=== PATIENT | female | born 1975 | race African-American/Black ===

== ENCOUNTER → 2016-11-12 | Outpatient (CLI) | payer BC, MEDICAID ==
[2016-11-12 15:58] LABS: PROTHROMBIN TIME 13.8 SEC (11.4-15.4)
[2016-11-12 15:59] LABS: PARTIAL THROMBOPLASTIN TIME 30.8 SEC (23.5-35.8)
== END ==
LOC: OD 14:57
PROVIDERS: ATTEND Obstetrics & Gynecology
DX: N93.8 Other specified abnormal uterine and vaginal bleeding (principal)
CPT/HCPCS: 36415; 85610; 85730

== ENCOUNTER 2017-05-29 07:05 | Day surgery (SDC) | payer BC ==
[2017-05-23 10:48] LABS: APPEARANCE,URINE SLIGHTLY-CLOUDY; BILIRUBIN,URINE NEGATIVE (NEGATIVE); GLUCOSE, URINE NEGATIVE (NEGATIVE); KETONES,URINE NEGATIVE (NEGATIVE); LEUKOCYTE ESTERASE,URINE NEGATIVE (NEGATIVE); NITRITE,URINE NEGATIVE (NEGATIVE); PROTEIN,URINE NEGATIVE (NEGATIVE); URINE SPECIFIC GRAVITY 1.024; UROBILINOGEN,URINE NEGATIVE mg/dL (<2.0)
[2017-05-23 11:08] LABS: HEMATOCRIT 35.3 % (36.0-47.0); HEMOGLOBIN 11.5 g/dL (12.0-15.5); HGB HCT DIFFERENCE -0.8; MEAN CORPUSCULAR HGB CONC 32.5 g/dL (32.0-36.0); MEAN CORPUSCULAR VOLUME 83 fl (80-97); RED BLOOD COUNT 4.26 10^6/uL (3.72-5.28); RED CELL DISTRIBUTION WIDTH 13.5 % (11.5-14.0); WHITE BLOOD COUNT 7.2 10^3/uL (4.0-10.5)
[2017-05-23 11:27] LABS: ALANINE AMINOTRANSFERASE 24 U/L (9-52); ALBUMIN 4.5 g/dL (3.5-5.0); ALKALINE PHOSPHATASE 68 U/L (38-126); ANION GAP 11 (5-19); ASPARTATE AMINO TRANSFERASE 20 U/L (14-36); BILIRUBIN,DIRECT 0.4 mg/dL (0.0-0.4); BILIRUBIN,TOTAL 0.4 mg/dL (0.2-1.3); BLOOD UREA NITROGEN 12 mg/dL (7-20); CALCIUM 9.6 mg/dL (8.4-10.2); CARBON DIOXIDE 24 mmol/L (22-30); CHLORIDE 105 mmol/L (98-107); CREATININE RESULT 0.88 mg/dL (0.52-1.25); GLUCOSE 83 mg/dL (75-110); POTASSIUM 3.9 mmol/L (3.6-5.0); SODIUM 140.1 mmol/L (137-145); TOTAL PROTEIN 7.4 g/dL (6.3-8.2)
[~2017-05-29 07:05] MED LIST: LACTATED RINGERS 1000 ML IV PRN
[2017-05-29] MEDS ORDERED: BUPIVACAINE HCL 0.25 % INJ/PF (2.5 MG/1 ML) 30 ML VIAL ONE (07:44)
[2017-05-29] MEDS ORDERED: FENTANYL CITRATE INJ/PF 250 MCG/5 ML AMPULE ONE (08:37)
[2017-05-29] MEDS ORDERED: MIDAZOLAM 2 MG/2 ML INJ ONE (08:38)
[2017-05-29] MEDS ORDERED: EPHEDRINE SULFATE INJ 50 MG/1 ML AMPULE ONE (08:38)
[2017-05-29] MEDS ORDERED: FENTANYL CITRATE INJ/PF 100 MCG/2 ML AMPUL ONE (08:38)
[2017-05-29] MEDS ORDERED: PROPOFOL INJ 200 MG/20 ML VIAL IV ONE (08:39)
[2017-05-29] MEDS ORDERED: ACETAMINOPHEN 100 ML IV ONE (08:39)
[2017-05-29] MEDS ORDERED: DIPHENHYDRAMINE HCL 50 MG/ML VIAL IV PRN (09:33)
[2017-05-29] MEDS ORDERED: PROMETHAZINE HCL INJ 25 MG/1 ML VIAL IV PRN ×2 (09:33→10:55)
[2017-05-29] MEDS ORDERED: FENTANYL CITRATE INJ/PF 100 MCG/2 ML AMPUL IV PRN ×3 (09:33)
[2017-05-29] MEDS ORDERED: MORPHINE SULFATE 10 MG/ML INJ IV PRN (09:33)
[2017-05-29] MEDS ORDERED: OXYCODONE-ACETAMINOPHEN 5-325 MG TABLET PO PRN ×2 (10:54→10:55)
--- NOTE | 2017-05-29 11:13 | OPERATIVE REPORT E ---
Operative Report NAME: KATE ZAMAN : 1975 AGE: 41Y DATE OF SURGERY: 05/29/2017 ROOM: PREOPERATIVE DIAGNOSES: 1. Dysfunctional uterine bleeding. 2. Undesired fertility. POSTOPERATIVE DIAGNOSES: 1. Dysfunctional uterine bleeding. 2. Undesired fertility. 3. Endometrial polyp. SURGERIES: 1. D and C. 2. Hysteroscopy. 3. Novasure. 4. Laparoscopic tubal with Filshie clips. SURGEON: MIGEL GUZMAN M.D. ANESTHESIA: General and 0.25% Marcaine. ESTIMATED BLOOD LOSS: 25 mL. PERTINENT HISTORY AND OPERATIVE FINDINGS: This is a 41-year-old female who had been having trouble with irregular spotting. She had a Norplant in and ultimately wanted to have it removed, but she wanted to do something to be sure she did not get at this state. She is aware of the risks and benefits of this procedure and opted to go ahead with a D and C, Novasure, hysteroscopy, and laparoscopic Filshie clip applications to the tubes. At the time of surgery, the vulva appeared to be normal. The vagina appeared to be normal. The cervix appeared to be normal. The uterus appeared to be normal size and shape. She had had a previous section, so the bladder was slightly advanced. The tubes appeared to be okay. The ovaries were a little bit enlarged. Nothing suspicious. There was no ascites. Liver showed evidence of some fibrosis. The appendix appeared to be normal as did the rest of the bowel. OPERATIVE PROCEDURE: Patient was brought into the OR, placed on the table in a supine position, inducted under general anesthesia. Following this, she was repositioned in the dorsal lithotomy position, prepped and draped in a sterile fashion. The bladder was drained of about 25 mL of normal yellow urine. After the bladder was drained, we did a pelvic under anesthesia. After this, we went ahead and put in a weighted speculum. The cervix was grasped on its anterior lip with a single-toothed tenaculum. It was sounded to 8 cm. Tenaculum and probe was inserted. The other equipment was removed. Attention was turned toward the abdominal wall. A Veress needle was introduced umbilically and carried through the various layers until the abdominal cavity was entered. Upon entering the abdominal cavity, approximately 2.3 L of CO2 were injected. The opening pressure was 4. The closing pressure was 15. Having established a pneumoperitoneum, the Veress needle was removed. A small incision was made infraumbilically. Through this incision, a trocar and sleeve were inserted. The trocar was removed, and through a sleeve, a scope was inserted. There was good visualization of the pelvic structures. A second incision was made suprapubically through the Pfannenstiel incision of her in the midline. Through the incision, a trocar and sleeve were inserted. The trocar was removed and through the sleeve a probe was inserted. The contents of the pelvis and the abdomen were video recorded. Having done this, a Filshie clip applicator was inserted through the suprapubic port. The right tube was picked up in its mid portion and a Filshie clip was applied. The same procedure was carried out on the left. There seemed to be a good application. A few more pictures were taken. This terminated this part of the procedure. The CO2 was allowed to escape. The ports were removed. The fascia was closed with 0 Vicryl after injecting 6 mL of 0.25% Marcaine in the subumbilical incision and 4 mL in the suprapubic incision. The skin edges were brought together and the subumbilical incision with subcuticular 4-0 Prolene. The skin edges in the suprapubic incision were closed with interrupted using 4-0 Prolene. Band aids were applied. Attention was then turned back down towards the pelvis. A weighted speculum was inserted. The tenaculum probe was removed. The cervix was grasped on its anterior lip with a single-toothed tenaculum. It was dilated with uterine dilators to a #8. The cervical length was 4 cm and our cavity length was measured at 8 cm, so we have a cavity length from the internal cervical os to the fundus of 4 cm. Having established this, the area was curetted and a hysteroscope was inserted. The hysteroscope was inserted while running in normal saline. We did see a polyp on the anterior fundal surface pretty much right at the top. Polyp forceps were inserted and the polyp was removed. The excess saline was then removed and the hysteroscope was then removed. The Novasure was opened up. The system was purged. It was then gently inserted through the external cervical os, the internal cervical os, and carried up to the fundus of the uterus. It was then gently opened up. It was manipulated north, south, east, west with a 45-degree rotation in between and then pulled back. This was done 3 times. It gave us a cavity width of 3.7 cm. Having established that, the system was purged and we had a power level of 81. The equipment was enabled. We had a burn time of 1 minute, 35 seconds. Then, the Novasure was closed. It was gently extracted from the uterus and the hysteroscope was then gently reinserted through the cervical os, and while the saline was running, we had a good visualization of the uterine cavity. There was a good burn. This terminated this part of the procedure. The tenaculum was removed from the cervix, which were used for traction during this whole procedure. There were 2 of them. The lower one had a bleeding on its left prong site and we tried to treat this with Monsel's, but unfortunately were unable to stop the bleeding, so we opened up a cautery, and at 35 power, we went ahead and cauterized the area where she was having bleeding from the prong site of the first tenaculum. The area was sponged. There was no evidence of ongoing bleeding. The weighted speculum was removed. The equipment was all removed. Patient was placed back in the supine position and anesthesia was discontinued. Patient tolerated the procedure well, had an estimated blood loss of about 25 mL, left the operating room in satisfactory condition. As stated, photographs were taken of the laparoscopic procedure, once again showing a normal appendix, slightly enlarged sclerotic ovaries, slightly boggy uterus with advanced bladder secondary to . The bowel pretty much appeared to be normal. The liver did have changes suggestive of fibrotic issues. Will talk to her about this when she comes in for her postop. DICTATING PHYSICIAN: MIGEL GUZMAN M.D. [id number] PHY#: [id number] ID: [id number] JOB#: [id number] ACCT: [id number] cc:MIGEL GUZMAN M.D. >
[2017-05-29 11:34] LABS: ABSOLUTE EOSINOPHILS # (AUTO) 0.1 10^3/uL (0.0-0.6); ABSOLUTE LYMPHOCYTES (AUTO) 2.5 10^3/uL (0.5-4.7); ABSOLUTE MONOCYTES (AUTO) 0.4 10^3/uL (0.1-1.4); ABSOLUTE NEUT (AUTO) 5.4 10^3/uL (1.7-8.2); BASOPHILS % (AUTO) 0.1 % (0-2); EOSINOPHILS % (AUTO) 1.3 % (0-6); HEMOGLOBIN 11.1 g/dL (12.0-15.5); HGB HCT DIFFERENCE -0.7; LYMPHOCYTES % (AUTO) 29.7 % (13-45); MEAN CORPUSCULAR HEMOGLOBIN 27.3 pg (27.0-33.4); MEAN CORPUSCULAR HGB CONC 32.7 g/dL (32.0-36.0); MEAN CORPUSCULAR VOLUME 84 fl (80-97); MONOCYTES % (AUTO) 4.9 % (3-13); RED BLOOD COUNT 4.07 10^6/uL (3.72-5.28); RED CELL DISTRIBUTION WIDTH 13.9 % (11.5-14.0); WHITE BLOOD COUNT 8.4 10^3/uL (4.0-10.5)
[2017-05-29 11:47] LABS: ALANINE AMINOTRANSFERASE 25 U/L (9-52); ALBUMIN 4.1 g/dL (3.5-5.0); ALKALINE PHOSPHATASE 64 U/L (38-126); ANION GAP 13 (5-19); ASPARTATE AMINO TRANSFERASE 24 U/L (14-36); BILIRUBIN,DIRECT 0.3 mg/dL (0.0-0.4); BILIRUBIN,TOTAL 0.5 mg/dL (0.2-1.3); BLOOD UREA NITROGEN 10 mg/dL (7-20); CARBON DIOXIDE 21 mmol/L (22-30); CHLORIDE 104 mmol/L (98-107); GLUCOSE 140 mg/dL (75-110); POTASSIUM 3.8 mmol/L (3.6-5.0); SODIUM 137.8 mmol/L (137-145); TOTAL PROTEIN 7.2 g/dL (6.3-8.2)
[2017-05-29] MEDS ORDERED: CIPROFLOXACIN HCL 500 MG TABLET PO ONE (12:00)
[2017-05-29 13:20] VITALS: BP 119/88
[2017-05-29] MEDS ORDERED: ONDANSETRON HCL INJ/PF 4 MG/2 ML SDV ONE (13:57)
[2017-05-29] MEDS ORDERED: LIDOCAINE 2% INJ-PF (20 MG/ML) 10 ML AMPUL ONE (13:57)
[2017-05-29] MEDS ORDERED: DEXAMETHASONE SOD PHOSPHATE INJ 4 MG/1 ML VIAL ONE (13:57)
[2017-05-29] MEDS ORDERED: GLYCOPYRROLATE INJ 0.4 MG/2 ML VIAL ONE (13:57)
[2017-05-29] MEDS ORDERED: VECURONIUM BROMIDE INJ 10 MG VIAL IV ONE (13:57)
[2017-05-29] MEDS ORDERED: NEOSTIGMINE METHYLSULFATE 10 MG/10 ML VIAL ONE (13:57)
== END 2017-05-29 13:15 | disposition home or self-care (01) ==
LOC: OROUT 07:05
PROVIDERS: ATTEND Obstetrics & Gynecology
PROC: 0U5B8ZZ Destruction of Endometrium, Via Natural or Artificial Opening Endoscopic (ICD-10-PCS; principal; 2017-05-29 09:00)
PROC: 0UL74CZ Occlusion of Bilateral Fallopian Tubes with Extraluminal Device, Percutaneous Endoscopic Approach (ICD-10-PCS; 2017-05-29 09:00)
DX: Z30.2 Encounter for sterilization (principal); N93.8 Other specified abnormal uterine and vaginal bleeding; N84.0 Polyp of corpus uteri; Z88.0 Allergy status to penicillin
CPT/HCPCS: 36415 ×2; 85025; 85027; 81025; 80053 ×2; 81001; 88305 ×2; 58563; 58671; J2250; J1100; J3010; J3490 ×2; J2405; J2704; J0131; 851